=== PATIENT | male | born 1985 | race Caucasian/White ===

== ENCOUNTER 2019-11-03 21:30 | Emergency (ER) | payer BC, SELFPAY ==
[2019-11-03 21:30] VITALS: BP 140/90; PULSE 80; RESP 16; TEMP 36.7; O2SAT 98; BMI 27.6
--- NOTE | 2019-11-03 21:38 | XR_ITS ---
PROCEDURE: XR TIBIA FIBULA RT 2V CLINICAL INDICATION: trauma/ pain Posttraumatic pain COMPARISON: No exams were available for comparison FINDINGS: No fracture, dislocation, lytic change, or blastic change evident. No significant degenerative change IMPRESSION: No acute findings. Dictated by: Bubba Rider MD 11/04/2019 06:29 Electronically signed by Bubba Rider MD in [facility] 11/04/2019 06:29
--- NOTE | 2019-11-03 21:38 | XR_ITS ---
PROCEDURE: XR TIBIA FIBULA LT 2V CLINICAL INDICATION: trauma/ pain Pain following injury COMPARISON: No exams were available for comparison FINDINGS: No fracture, dislocation, lytic change, or blastic change evident. No significant degenerative change IMPRESSION: No acute findings. Dictated by: Bubba Rider MD 11/04/2019 06:30 Electronically signed by Bubba Rider MD in [facility] 11/04/2019 06:30
--- NOTE | 2019-11-03 21:38 | XR_ITS ---
PROCEDURE: XR PELVIS 1-2V CLINICAL INDICATION: trauma Pain following injury, trauma protocol COMPARISON: No exams were available for comparison TECHNIQUE: XR Pelvis AP View FINDINGS: No fracture or dislocation is evident. Minimal osteoarthritic changes of the hips. Contrast is present in the distal ureters and within the urinary bladder. No evidence of contrast extravasation. IMPRESSION: No acute findings. Dictated by: Bubba Rider MD 11/04/2019 06:33 Electronically signed by Bubba Rider MD in [facility] 11/04/2019 06:33
--- NOTE | 2019-11-03 21:38 | XR_ITS ---
PROCEDURE: XR HUMERUS LT CLINICAL INDICATION: pain Pain following injury COMPARISON: No exams were available for comparison FINDINGS: No fracture or dislocation. No lytic or blastic change. There is normal mineralization. The joint spaces are well-preserved. No significant degenerative/arthritic changes. No erosive changes evident. Other findings:None. IMPRESSION: No acute findings. Dictated by: Bubba Rider MD 11/04/2019 06:34 Electronically signed by Bubba Rider MD in [facility] 11/04/2019 06:34
--- NOTE | 2019-11-03 21:38 | CT_ITS ---
PROCEDURE: CT HEAD/BRAIN WO CON CLINICAL INDICATION: trauma Head injury with headache/pain, contusion, abrasion or hematoma COMPARISON: No exams were available for comparison TECHNIQUE: Axial images obtained. All CT scans at the facility use one or more dose reduction, viz: automated exposure control, ma/kV adjustment per patient size (including targeted exams where dose is matched to indication, i.e. head), or iterative reconstruction technique. FINDINGS: No midline shift, mass effect, intracranial hemorrhage, hydrocephalus, or extra-axial fluid collection is evident. The calvarium has an unremarkable appearance. No mastoid effusion. No sinus air-fluid level. IMPRESSION: No acute intracranial finding Dictated by: Bubba Rider MD 11/04/2019 07:09 Electronically signed by Bubba Rider MD in [facility] 11/04/2019 07:09
--- NOTE | 2019-11-03 21:38 | XR_ITS ---
PROCEDURE: XR SHOULDER LT MIN 2V CLINICAL INDICATION: pain Posttraumatic pain COMPARISON: No exams were available for comparison FINDINGS: No fracture, dislocation, lytic change, or blastic change evident. No significant degenerative change IMPRESSION: No acute findings. Dictated by: Bubba Rider MD 11/04/2019 06:31 Electronically signed by Bubba Rider MD in [facility] 11/04/2019 06:31
--- NOTE | 2019-11-03 21:38 | CT_ITS ---
PROCEDURE: CT CERVICAL SPINE WO CON CLINICAL INDICATION: trauma Neck injury with pain, contusion/abrasion or hematoma, cervical sprain/strain the COMPARISON: No exams were available for comparison TECHNIQUE: Axial images obtained with sagittal and coronal reformats. All CT scans at the facility use one or more dose reduction, viz: automated exposure control, ma/kV adjustment per patient size (including targeted exams where dose is matched to indication, i.e. head), or iterative reconstruction technique. Axial spiral CT scanning performed of the cervical spine beginning at the base of the skull and continuing to the upper T-spine. 3-D multiplanar reconstruction with 3-D manipulation of volumetric data set in image rendering was completed by the radiologist and/or technologist with the supervision of the radiologist on independent workstation. FINDINGS: Normal alignment. No fracture or dislocation. No lytic or blastic change. Small central disc protrusion versus prominent posterior longitudinal ligament at C2-C3, C3-C4, C4-C5. Mild degenerative disc disease at C5-C6. Lung apices are clear. Scattered small nodes are present in the neck IMPRESSION: No acute fracture. Degenerative changes with small central disc protrusion versus prominent posterior longitudinal ligament C2-C3, C3-C4, and C4-C5 Dictated by: Bubba Rider MD 11/04/2019 07:07 Electronically signed by Bubba Rider MD in [facility] 11/04/2019 07:07
--- NOTE | 2019-11-03 21:38 | CT_ITS ---
PROCEDURE: CT ABDOMEN PELVIS W CON CLINICAL INDICATION: trauma Posttraumatic pain, blunt trauma with injury and pain swelling and abrasion COMPARISON: No exams were available for comparison TECHNIQUE: IV Contrast: 75ML OPTIRAY 350 Oral Contrast none Axial images obtained with sagittal and coronal reformats. All CT scans at the facility use one or more dose reduction, viz: automated exposure control, ma/kV adjustment per patient size (including targeted exams where dose is matched to indication, i.e. head), or iterative reconstruction technique. FINDINGS: LOWER THORAX: No acute finding ABDOMEN & PELVIS: The liver, spleen, pancreas, adrenal glands, and kidneys show no acute finding. No intestinal obstruction or free air. No evidence of appendicitis or diverticulitis. No pelvic mass, abnormal fluid collection, or focal inflammatory change of the pelvis. No acute bony anomalies. There is a small umbilical hernia which contains fat. There are few sclerotic foci suggesting bone islands in the femoral heads IMPRESSION: No acute finding Dictated by: Bubba Rider MD 11/04/2019 07:16 Electronically signed by Bubba Rider MD in [facility] 11/04/2019 07:16
--- NOTE | 2019-11-03 21:38 | XR_ITS ---
PROCEDURE: XR CHEST AP CLINICAL HISTORY: trauma Posttraumatic pain, trauma protocol, trauma alert the COMPARISON: CXR CHEST(2 VIEWS-NOT PORTABLE) from 02/25/2014 FINDINGS: Mild cardiomegaly without failure. Calcified granuloma right upper lobe. The remaining lungs are clear. No acute bony abnormalities. IMPRESSION: No acute findings. Dictated by: Bubba Rider MD 11/04/2019 06:32 Electronically signed by Bubba Rider MD in [place] 11/04/2019 06:32
[2019-11-03 21:48] LABS: Basophils # 0.2 K/mm3 (0-0.2); Basophils % 1.9 % (0.1-2.0); Eosinophils # 0.2 K/mm3 (0.0-0.4); Eosinophils % 2.2 % (0.1-12.0); Hematocrit 44.8 % (42.0-52.0); Hemoglobin 15.6 g/dL (14.1-18.0); Lymphocytes # 4.5 K/mm3 (0.7-4.5); Lymphocytes % 44.9 % (10-50); Mean Corpuscular Hemoglobin 32.2 pg (27.0-31.2); Mean Platelet Volume 7.1 fl (7.4-10.4); Monocytes # 0.6 K/mm3 (0.1-1.0); Monocytes % 5.5 % (1.7-9.3); Neutrophils # 4.5 K/mm3 (1.8-7.8); Neutrophils % 45.5 % (37.0-80.0); Platelet Count 381 K/mm3 (142-424); Red Blood Count 4.86 M/mm3 (4.60-6.20); Red Cell Distribution Width 13.1 % (11.5-17.5); White Blood Count 9.9 K/mm3 (4.8-10.8)
[2019-11-03 21:53] LABS: Alanine Aminotransferase 26 U/L (12-78); Albumin Level 5.3 g/dl (3.5-5.0); Albumin/Globulin Ratio 1.6 (1.1-1.8); Alkaline Phosphatase 90 U/L (38-126); Anion Gap 16.2 mEq/L (5-15); Aspartate Amino Transferase 39 U/L (17-59); Bilirubin,Total 0.4 mg/dl (0.2-1.3); Blood Urea Nitrogen 15 mg/dl (9-20); Calcium 9.6 mg/dl (8.4-10.2); Carbon Dioxide 24 mmol/L (22.0-30.0); Chloride 102 mmol/L (98-107); Creatinine Clearance Estimated 131 mL/min (50-200); Estimated Glomerular Filt Rate 77 ml/min (>60); GFR (African American) 93 ML/MIN (>60); Globulin 3.3 g/dL (1.3-3.2); Glucose 96 mg/dl (74-100); Potassium 4.2 mmoL/L (3.5-5.1); Sodium 138 mmol/L (136-145); Total Protein,Serum 8.6 g/dl (6.3-8.2)
--- NOTE | 2019-11-03 22:21 | HMH.EDTRAUMA ---
ED Disposition Clinical Impression: Trauma Contusion of left chest wall Qualifiers: Encounter type: initial encounter Qualified Code(s): S20.212A - Contusion of left front wall of thorax, initial encounter Lower extremity injury Qualifiers: Encounter type: initial encounter Laterality: unspecified laterality Qualified Code(s): S89.90XA - Unspecified injury of unspecified lower leg, initial encounter Internal knee problem Qualifiers: Laterality: left Qualified Code(s): M23.92 - Unspecified internal derangement of left knee Disposition: Home, Self-Care Condition on Discharge: Good Instructions: DI for Trauma Additional Instructions: ice and wt bearing as vishnu and see pcp and ortho - use nsaif Referrals: Shirin Luis APRN [Primary Care Provider] - Ezio Robles MD [Staff Physician] - - Critical Care Critical Care Time: No Attestation: On 11/03/19, the high probability of a clinically significant, sudden or life threatening deterioration of the following system(s) required my full and direct attention, intervention and personal management. The time I documented below is in addition to time spent performing reported procedures but includes the following listed in this critical care notation. Medical Decision Making - Medical Records Medical records reviewed: Yes: I reviewed the patient's medical records. - Ricardo Inquiry Pt receiving controlled substance: No Vital Signs: 11/03/19 21:30 Temperature 98.1 F Temperature Source Oral Pulse Rate [Left Radial] 80 Respiratory Rate 16 Blood Pressure [Right Arm] 140/90 Blood Pressure Mean [Right Arm] 106 Blood Pressure Source [Right Arm] Automatic Cuff Blood Pressure Position [Right Arm] Sitting 02 Sat by Pulse Oximetry 98 Oxygen Delivery Method Room Air - Lab Data Lab results reviewed: Yes: I reviewed the patient's lab results. Lab Results 11/03/19 21:30: WBC 9.9, RBC 4.86, Hgb 15.6, Hct 44.8, MCV 92.0, MCH 32.2 H, MCHC 35.0, RDW 13.1, Plt Count 381, MPV 7.1 L, Neut % (Auto) 45.5, Lymph % (Auto) 44.9, [place] % (Auto) 5.5, Eos % (Auto) 2.2, Baso % (Auto) 1.9, Neut # (Auto) 4.5, Lymph # (Auto) 4.5, [place] # (Auto) 0.6, Eos # (Auto) 0.2, Baso # (Auto) 0.2 11/03/19 21:30: Sodium 138, Potassium 4.2, Chloride 102, Carbon Dioxide 24, Anion Gap 16.2 H, BUN 15, Creatinine 1.10, Estimated Creat Clear 131, Estimated GFR 77, Est GFR ( Amer) 93, Glucose 96, Calcium 9.6, Total Bilirubin 0.4, AST 39, ALT 26, Alkaline Phosphatase 90, Total Protein 8.6 H, Albumin 5.3 H, Globulin 3.3 H, Albumin/Globulin Ratio 1.6 11/03/19 21:30: Plasma/Serum Alcohol 157 H Result diagrams: 11/03/19 21:30 11/03/19 21:30 Orders (Tests/Meds): ED MEDICATIONS Discontinued Medications Generic Name Dose Route Start Last Admin Trade Name Freq PRN Reason Stop Dose Admin Ioversol 75 ml 11/03/19 23:21 11/03/19 23:21 Rad-Optiray 350 100ml Vial IV 11/03/19 23:22 75 ml ONCE ONE Administration Protocol Ketorolac Tromethamine 30 mg 11/03/19 21:40 11/03/19 21:45 Toradol 30mg/Ml Vial IV 11/03/19 21:41 30 mg ONCE ONE Administration Morphine Sulfate 4 mg 11/03/19 23:20 11/03/19 23:23 Morphine 4mg/Ml Syringe IV 11/03/19 23:21 4 mg ONCE ONE Administration Ondansetron HCl 4 mg 11/03/19 21:40 11/03/19 21:45 Zofran 4mg/2ml Vial IV 11/03/19 21:41 4 mg ONCE ONE Administration Sodium Chloride 10 ml 11/03/19 23:21 11/03/19 23:21 Rad-Saline Flush 10ml Syringe IV 11/03/19 23:22 10 ml ONCE ONE Administration ORDERS Category Date Time Status CT abdomen pelvis w con Stat Cat Scan 11/03/19 21:[address] cervical spine wo con Stat Cat Scan 11/03/19 21:[address] chest w con Stat Cat Scan 11/03/19 23:[address] head/brain wo con Stat Cat Scan 11/03/19 21:[address] knee LT wo con Stat Cat Scan 11/03/19 23:37 Ordered XR chest AP Stat Exams 11/03/19 21:38 Taken XR humerus LT Stat Exams 11/03/19 21:38 Taken XR pel
[2019-11-03 22:39] LABS: Ethyl Alcohol 157 mg/dl (0-10)
--- NOTE | 2019-11-03 23:37 | CT_ITS ---
PROCEDURE: CT KNEE LT WO CON CLINICAL HISTORY: pain post trauma Pain following injury, left knee pain swelling and abrasion post trauma COMPARISON: No exams were available for comparison TECHNIQUE: Axial images obtained with sagittal and coronal reformats. All CT scans at the facility use one or more dose reduction, viz: automated exposure control, ma/kV adjustment per patient size (including targeted exams where dose is matched to indication, i.e. head), or iterative reconstruction technique. FINDINGS: No fracture or dislocation. No lytic or blastic change. Small amount fluid noted within the knee joint. There is some increased density along the anterior cruciate ligament which may be better evaluated with MRI. There is some mild prepatellar and pretibial soft tissue swelling IMPRESSION: 1. No acute fracture. 2. Minimal irregularity of the soft tissues along the anterior cruciate ligament which may be better evaluated with MRI. Dictated by: Bubba Rider MD 11/04/2019 07:20 Electronically signed by Bubba Rider MD in [place] 11/04/2019 07:20
--- NOTE | 2019-11-03 23:37 | CT_ITS ---
PROCEDURE: CT CHEST W CON CLINCAL INDICATION: pain post trauma Chest pain following injury, blunt trauma with contusion/hematoma/abrasion COMPARISON: CT ABDOMEN PELVIS W CON from 11/03/2019 TECHNIQUE: IV Contrast: 75ml Optiray 350 Axial images obtained with sagittal and coronal reformats. All CT scans at the facility use one or more dose reduction, viz: automated exposure control, ma/kV adjustment per patient size (including targeted exams where dose is matched to indication, i.e. head), or iterative reconstruction technique. FINDINGS: There are small nodes in the axilla. No evidence of aortic aneurysm, dissection, or pulmonary embolus. There is some faint soft tissue density present in the anterior mediastinum which may be related to residual thymic tissue. Normal heart size. No evidence of pericardial effusion. There is evidence of old granulomatous disease. No evidence of pneumothorax. No acute bony findings. There is mild gynecomastia IMPRESSION: No acute finding. Dictated by: Bubba Rider MD 11/04/2019 07:14 Electronically signed by Bubba Rider MD in [place] 11/04/2019 07:14
[2019-11-04 01:13] VITALS: BP 138/78; PULSE 78; RESP 14; TEMP 36.7; O2SAT 98
[2019-11-07 15:48] LABS: POC Glucose,Bedside 110 (70-110)
== END 2019-11-04 01:15 | disposition home or self-care (01) ==
PROVIDERS: Emergency Provider Emergency Medicine; PCP Nurse Practitioner
DX: S20.212A Contusion of left front wall of thorax, initial encounter (principal); S89.90XA Unspecified injury of unspecified lower leg, initial encounter; M23.92 Unspecified internal derangement of left knee; V86.59XA Driver of other special all-terrain or other off-road motor vehicle injured in nontraffic accident, initial encounter; Y92.73 Farm field as the place of occurrence of the external cause; Z88.0 Allergy status to penicillin
CPT/HCPCS: 70450; 71045; 71260; 72125; 72170; 73030; 73060; 73590; 73700; 74177; 80053; 82962; 85025; 96374; 96375; 99281; J2405; Q9967

== ENCOUNTER 2021-01-25 12:37 | Emergency (ER) | payer BC, SELFPAY ==
[2021-01-25 13:15] VITALS: BP 125/85; PULSE 68; RESP 19; TEMP 36.9; O2SAT 96; BMI 27.6
[2021-01-25 13:51] VITALS: BP 125/85; PULSE 68; RESP 19; TEMP 36.9; O2SAT 96
--- NOTE | 2021-01-25 14:00 | HMH.EDUTC ---
[facility] [place] Impression: Strep [place] Disposition: Home, Self-Care Condition on Discharge: Good Instructions: DI for Strep Throat Additional Instructions: Start antibiotics today be sure to take it as ordered with the full length of time although you should start feeling better in 24-48 hours. Change toothbrush and toothpaste 24-48 hours after starting antibiotics Tylenol or Motrin as needed for fever or pain Encourage fluids, water, Gatorade, Powerade, try cold fluids, popsicles, ice cream will make it feel better You are contagious for 24 hours. Avoid kissing anyone, no eating or drinking after anyone. You are contagious. Follow-up the ER for new or worsening symptoms or no noticeable improvement over the next 24-48 hours. Follow-up with PCP this week. covid swab was sent to lab, call later today for results. self isolate until test results are known to be negative Prescriptions: Azithromycin [Zithromax 250mg tab] 250 mg PO DIRECTED #6 tab Transmission Status: Pending to [id number] Referrals: Claire Fairchild MD [Primary Care Provider] - Time of Disposition: 14:02 Medical Decision Making - Ricardo Inquiry Pt receiving controlled substance: No Vital Signs: 01/25/21 13:15 01/25/21 13:51 Temperature 98.4 F 98.4 F Temperature Source Oral Pulse Rate 68 Pulse Rate [Right Brachial] 68 Respiratory Rate 19 19 Blood Pressure 125/85 Blood Pressure [Right Arm] 125/85 Blood Pressure Mean [Right Arm] 98 Blood Pressure Source [Right Arm] Automatic Cuff Blood Pressure Position [Right Arm] Sitting 02 Sat by Pulse Oximetry 96 Oxygen Delivery Method Room Air Orders (Tests/Meds): ORDERS Category Date Time Status Covid-19 Nasal PCR ([facility]) Routine Lab 01/25/21 13:26 Re[place] [facility] [place] - General Chief complaint: [facility] Stated complaint: sore throat Time Seen by Provider: 01/25/21 14:00 Mode of Arrival: Ambulatory Source of Information: Patient Limitations: No Limitations Description of Symptoms (Recalled from Triage Doc. by RN): PATIENT C/O SORE THROAT, SINUS PRESSURE X 4 DAYS HEENT Symptoms (Recalled from RN notes): Yes Resp Symptoms (Recalled from RN notes): No Skin Symptoms (Recalled from RN notes): No MS Symptoms (Recalled from RN notes): No Functional Status (Recalled from RN notes): WNL - History of Present Illness Provider Complaint: 36 yr old male presents for sore throat and nasal congestion/ - Related Data Previous Rx's Medication Instructions Recorded Azithromycin [Zithromax 250mg 250 mg PO DIRECTED #6 tab 01/25/21 tab] Allergies Allergy/AdvReac Type Severity Reaction Status Date / Time Penicillins Allergy Verified 01/25/21 13:40 - Worker's Comp Is this a Worker's Comp case?: No H History - Hepatitis A Screen Drug use history?: No High risk sexual behaviors?: No History of sexually transmitted infection?: No Currently employed?: No Childcare worker?: No Do you have indoor plumbing?: Yes Do you have electricity?: Yes Attestation statement:: This patient has been screened for Hepatitis A risk factors. I have reviewed the patient's past medical history: Yes - Social History Smoking Status: Current every day smoker ROS Obtained: Yes Systems reviewed as appropriate & no additional complaints - Constitutional Constitutional: Reports system reviewed and no additional complaints, except as docu, Reports fatigue, Reports fever(s) - Eyes Eyes: Reports system reviewed and no additional complaints, except as docu, Denies blurry vision - ENT Ears, Nose, Mouth, and Throat: Reports system reviewed and no additional complaints, except as docu, Reports sore throat - Cardiovascular Cardiovascular: Reports system reviewed and no additional complaints, except as docu, Denies chest pain - Respiratory Respiratory: Reports system reviewed and no additional complaints, except as docu, Denies chest c
[2021-01-25 22:08] LABS: UTC Strep Screen (Rapid) Positive (Negative)
== END 2021-01-25 14:09 | disposition home or self-care (01) ==
PROVIDERS: Emergency Provider Nurse Practitioner Family; PCP Family Medicine
DX: J02.0 Streptococcal pharyngitis (principal); Z20.822 Contact with and (suspected) exposure to COVID-19; F17.210 Nicotine dependence, cigarettes, uncomplicated
CPT/HCPCS: 87880; 99203; G0463; U0003

== ENCOUNTER → 2021-08-12 10:43 | Outpatient (CLI) | payer BC, SELFPAY ==
--- NOTE | 2021-08-12 10:52 | XR_ITS ---
FINAL REPORT CLINICAL HISTORY: LOW BACK PAIN FINDINGS: 5 views of the lumbar spine were obtained. There is no evidence of fracture or dislocation. There is straightening of the normal lumbar curvature which could be due to positioning or muscle spasm. The vertebral alignment is normal. Disc spaces are preserved. No paraspinous soft tissue abnormalities identified. IMPRESSION: No acute bony abnormality. Straightening of the normal lumbar curvature, could be due to positioning or muscle spasm. Reviewed, Interpreted and Dictated by Paul Menendez III, MD Transcribed by Aixa Gonzalez Authenticated by Paul Menendez III, MD on 08/12/2021 11:35:15 AM [facility]
== END ==
PROVIDERS: PCP Family Medicine; Visit Provider Family Medicine
DX: M54.50 Low back pain, unspecified (principal)
CPT/HCPCS: 72110

== ENCOUNTER → 2021-08-24 13:05 | Outpatient (CLI) | payer BC, SELFPAY ==
--- NOTE | 2021-08-24 13:11 | XR_ITS ---
FINAL REPORT CLINICAL HISTORY: LT ANKLE PAIN/SWELLING FINDINGS: LEFT FOOT Three views of the left foot demonstrate no acute fracture or dislocation. The visualized joint spaces are normally aligned. There is soft tissue swelling over the dorsum of the foot. IMPRESSION: Soft tissue swelling without acute bony abnormality. Reviewed, Interpreted and Dictated by Emiliano Griffin MD Transcribed by Aixa Gonzalez Authenticated by Emiliano Griffin MD on 08/24/2021 04:28:03 PM [facility]
--- NOTE | 2021-08-24 13:11 | XR_ITS ---
FINAL REPORT CLINICAL HISTORY: LT ANKLE PAIN/SWELLING COMPARISON: November 03, 2019 FINDINGS: LEFT ANKLE Three views demonstrate no acute fracture or dislocation. The visualized joint spaces are normally aligned. There is prominent soft tissue swelling over the lateral malleolus. IMPRESSION: Prominent soft tissue swelling without acute bony abnormality. Reviewed, Interpreted and Dictated by Emiliano Griffin MD Transcribed by Aixa Gonzalez Authenticated by Emiliano Griffin MD on 08/24/2021 04:28:16 PM [facility]
== END ==
PROVIDERS: PCP Family Medicine; Visit Provider Family Medicine
DX: M25.572 Pain in left ankle and joints of left foot (principal); M25.472 Effusion, left ankle
CPT/HCPCS: 73610; 73630

== ENCOUNTER → 2022-03-15 11:52 | Outpatient (CLI) | payer OTHER, SELFPAY ==
--- NOTE | 2022-03-15 12:01 | XR_ITS ---
FINAL REPORT CLINICAL HISTORY: Left ankle pain @ lateral malleoli x wks, pt fell FINDINGS: LEFT ANKLE: Three views of the left ankle were obtained. There is a small calcification adjacent to lateral malleolus worrisome for an avulsion fracture of uncertain age. There is a small calcification medial to the distal fibula which could represent a small loose body. The joint spaces and mortise are intact. There is lateral soft tissue swelling. IMPRESSION: Small calcification adjacent to the lateral malleolus worrisome for an avulsion fracture of uncertain age with lateral soft tissue swelling. Calcification medial to the distal fibula could represent a small loose body. Reviewed, Interpreted and Dictated by Paul Menendez III, MD Transcribed by Maria De Jesus Escoto Authenticated and . [facility]
== END ==
PROVIDERS: PCP Family Medicine; Visit Provider Nurse Practitioner Family
DX: M25.572 Pain in left ankle and joints of left foot (principal)
CPT/HCPCS: 73610

== ENCOUNTER → 2022-04-10 09:16 | Outpatient (CLI) | payer OTHER, SELFPAY ==
--- NOTE | 2022-04-10 09:22 | MR_ITS ---
FINAL REPORT CLINICAL HISTORY: ACUTE LEFT ANKLE PAIN PT STATES ORIGINAL INURY IN AUGUST. SINCE THEN HAS REINJURED. LATERAL ANKLE PAIN. FINDINGS: Multiplanar MR imaging of the left ankle was performed without contrast. The bony structures are intact without evidence of fracture, bone bruise or marrow edema. There is a tiny, osteochondral lesion at the posterior lateral talar dome seen on axial imaging series 4, image 15 measuring 4 mm. The ligaments are intact without evidence of injury. The flexor and extensor tendons are intact. The posterior plantar aponeurosis is intact. No significant joint effusion is seen. The musculature is intact. There is no evidence of soft tissue mass or cyst. IMPRESSION: 4 mm osteochondral lesion at the posterior lateral talar dome. Reviewed, Interpreted and Dictated by Emiliano Griffin MD Transcribed by Veronica Anguiano Authenticated and [facility]
== END ==
PROVIDERS: PCP Family Medicine; Visit Provider Family Medicine
DX: M25.572 Pain in left ankle and joints of left foot (principal)
CPT/HCPCS: 73721

== ENCOUNTER 2024-10-13 17:38 | Emergency (ER) | payer BC, SELFPAY ==
[2024-10-13] VITALS (9 sets, daily range): BP systolic 117–144; BP diastolic 72–89; PULSE 80–91; RESP 14–18; TEMP 36.6–36.7; O2SAT 96–99; BMI 25.0
--- NOTE | 2024-10-13 17:42 | PC.NURSE ---
TRAUMA ALERT CALLED
--- NOTE | 2024-10-13 17:48 | CT_ITS ---
PROCEDURE INFORMATION: Exam: CT Lumbar Spine Without Contrast Exam date and time: 10/13/2024 6:07 PM Age: 39 years old Clinical indication: Injury or trauma; Additional info: Trauma, critical injury suspected TECHNIQUE: Imaging protocol: Computed tomography of the lumbar spine without contrast. Radiation optimization: All CT scans at this facility use at least one of these dose optimization techniques: automated exposure control; mA and/or kV adjustment per patient size (includes targeted exams where dose is matched to clinical indication); or iterative reconstruction. COMPARISON: CT THORACIC SPINE WO CON 10/13/2024 6:04 PM FINDINGS: Bones/joints: No acute fracture. Normal alignment. No significant disc bulge or herniation. No severe spinal canal stenosis. No significant neural foraminal narrowing. Soft tissues: Unremarkable. IMPRESSION: No acute findings.
--- NOTE | 2024-10-13 17:48 | CT_ITS ---
PROCEDURE INFORMATION: Exam: CTA Neck With Contrast Exam date and time: 10/13/2024 6:10 PM Age: 39 years old Clinical indication: Injury or trauma; Additional info: Trauma, critical injury suspected TECHNIQUE: Imaging protocol: Computed tomographic angiography of the neck with contrast. Exam focused on the cervical segments of the vasculature. 3D rendering (Not supervised by radiologist): MIP and/or 3D reconstructed images were created by the technologist. Radiation optimization: All CT scans at this facility use at least one of these dose optimization techniques: automated exposure control; mA and/or kV adjustment per patient size (includes targeted exams where dose is matched to clinical indication); or iterative reconstruction. Contrast material: ISOUVE 370; Contrast volume: 160 ml; Contrast route: INTRAVENOUS (IV); COMPARISON: CT CERVICAL SPINE WO CON 10/13/2024 6:02 PM FINDINGS: Limitations: Limited by artifact arising from metallic dental hardware/dental amalgam. Right common carotid artery: No stenosis. No dissection or occlusion. Right internal carotid artery: No stenosis of the extracranial segment. No dissection or occlusion. Right external carotid artery: No occlusion or stenosis of the origin. Left common carotid artery: No stenosis. No dissection or occlusion. Left internal carotid artery: No stenosis of the extracranial segment. No dissection or occlusion. Left external carotid artery: No occlusion or stenosis of the origin. Right vertebral artery: No stenosis. No dissection or occlusion. Left vertebral artery: No stenosis. No dissection or occlusion. Soft tissues: Normal. No significant soft tissue swelling. Bones/joints: No acute fracture. IMPRESSION: No acute vascular pathology. REFERENCES: NASCET CRITERIA. The degree of stenosis in the cervical segment of the internal carotid artery is based on NASCET criteria. Normal is no stenosis. Mild is less than 50% stenosis. Moderate is 50-69% stenosis. Severe is 70% to 99% stenosis. Total occlusion is no detectable patent lumen.
--- NOTE | 2024-10-13 17:48 | CT_ITS ---
PROCEDURE INFORMATION: Exam: CT Thoracic Spine Without Contrast Exam date and time: 10/13/2024 6:04 PM Age: 39 years old Clinical indication: Injury or trauma; Additional info: Trauma, critical injury suspected TECHNIQUE: Imaging protocol: Computed tomography of the thoracic spine without contrast. Radiation optimization: All CT scans at this facility use at least one of these dose optimization techniques: automated exposure control; mA and/or kV adjustment per patient size (includes targeted exams where dose is matched to clinical indication); or iterative reconstruction. COMPARISON: CT CERVICAL SPINE WO CON 10/13/2024 6:02 PM FINDINGS: Bones/joints: No acute fracture. Normal alignment. No significant disc bulge or herniation. No severe spinal canal stenosis. No significant neural foraminal narrowing. Soft tissues: Unremarkable. IMPRESSION: Unremarkable CT Spine.
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
--- NOTE | 2024-10-13 17:49 | XR_ITS ---
FINAL REPORT CLINICAL HISTORY: pain FINDINGS: LEFT TIBIA AND FIBULA There is no acute fracture or dislocation. The joint spaces are intact. There is no soft tissue abnormality. IMPRESSION: No acute fracture Reviewed, Interpreted and Dictated by Emiliano Griffin MD Transcribed by Veronica Anguiano Authenticated and [facility]
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
--- NOTE | 2024-10-13 18:00 | ECG_ITS ---
APPROVED REPORT Exam: Resting ECG HR:83 bpm ECG Measurements Heart Rate 83 AXES ID 162 P 76 QRSd 87 QRS 71 QT 358 T 39 QTc 398 Conclusion Sinus rhythm Nonspecific ST and T wave changes Electronically signed by : MENA CHEN, 10/14/2024 20:26:51
[2024-10-13 18:06] LABS: Basophils # 0.1 K/mm3 (0-0.2); Eosinophils # 0.2 Kmm3 (0.0-0.4); Eosinophils % 2.4 % (0.1-12.0); Hematocrit 37.4 % (42.0-52.0); Hemoglobin 12.8 g/dL (14.1-18.0); Immature Granulocytes # 0.01 10^3uL; Immature Granulocytes % 0.1 %; Lymphocytes # 2.9 K/mm3 (0.7-4.5); Lymphocytes % 33.2 % (10-50); Mean Corpuscular HGB Conc 34.2 g/dL (31.8-35.4); Mean Corpuscular Hemoglobin 31.5 pg (27.0-31.2); Mean Corpuscular Volume 92.1 fl (80-94); Mean Platelet Volume 9.1 fl (7.4-10.4); Monocytes # 0.8 K/mm3 (0.1-1.0); Monocytes % 8.9 % (1.7-9.3); Neutrophils # 4.7 K/mm3 (1.8-7.8); Neutrophils % 54.4 % (37.0-80.0); Nucleated Red Blood Cells # 0 10^3/uL; Nucleated Red Blood Cells % 0 %; Platelet Count 312 K/mm3 (142-424); Red Blood Count 4.06 M/mm3 (4.60-6.20); Red Cell Distribution Width 12.2 % (11.5-17.5); Red Cell Distribution Width-SD 41.3 fL; White Blood Count 8.6 K/mm3 (4.8-10.8)
[2024-10-13 18:09] LABS: Albumin Level 4.5 g/dl (3.5-5.0)
[2024-10-13 18:10] LABS: Chloride 106 mmol/L (98-107); Potassium 3.8 mmoL/L (3.5-5.1); Sodium 137 mmol/L (136-145)
[2024-10-13] MEDS: 0.9 % SODIUM CHLORIDE 50 ML VIAL IV (18:10)
[2024-10-13] MEDS: IOPAMIDOL-370 (76%);100ML BOTTLE 160 ML IV (18:10)
[2024-10-13] MEDS: SODIUM CHLORIDE 0.9% 10ML SYR (RAD ONLY) 10 ML IV (18:10)
[2024-10-13 18:12] LABS: Alanine Aminotransferase 51 U/L (12-78); Alkaline Phosphatase 71 U/L (38-126); Anion Gap 8.8 mEq/L (5-15); Aspartate Amino Transferase 44 U/L (17-59); Bilirubin,Total 0.5 mg/dl (0.2-1.3); Blood Urea Nitrogen 15 mg/dl (9-20); Carbon Dioxide 26 mmol/L (22.0-30.0); Estimated Glomerular Filt Rate 94 ml/min (>60); GFR (African American) 114 ML/MIN (>60); Globulin 2.3 g/dL (1.3-3.2); INR 0.88 (0.9-1.1); Total Protein,Serum 6.8 g/dl (6.3-8.2)
[2024-10-13 18:13] LABS: Calcium 8.8 mg/dl (8.4-10.2); Glucose 89 mg/dl (74-100); Lipase 212 U/L (23-300); Magnesium 1.7 mg/dl (1.6-2.3)
[2024-10-13 18:24] LABS: Troponin I < 0.01 ng/ml (0.00-0.034)
[2024-10-13] MEDS: ONDANSETRON 4MG/2ML VIAL 4 MG IV (19:02)
[2024-10-13] MEDS: MORPHINE 4MG/ML SYRINGE 4 MG IV (19:02)
== END 2024-10-13 20:49 | disposition home or self-care (01) ==
PROVIDERS: Nurse Practitioner; Emergency Provider Emergency Medicine; PCP Family Medicine
DX: S81.012A Laceration without foreign body, left knee, initial encounter (principal); M79.642 Pain in left hand; V86.56XA Driver of dirt bike or motor/cross bike injured in nontraffic accident, initial encounter
CPT/HCPCS: 12002; 70450; 70496; 70498; 71275; 72125; 72128; 72131; 73110; 73551; 73562; 73590; 73610; 74174; 80053; 83690; 83735; 84484; 85025; 85610; 93005; 96374; 96375; 99285; J2270; J2405; Q9967

== ENCOUNTER 2024-12-24 16:00 | Outpatient (CLI) | payer BC, SELFPAY ==
--- OUTSIDE RECORDS SUMMARY | 2024-12-24 16:02 | XMS_ITS | Clinical Summary ---
Author Organization Healthcare Address [address] [place] [address] Care Team Providers Care Budget Specialist Name Role Phone Delores Jacob APRN Primary Care Provider [phone] Allergies Active Allergy Reactions Criticality Noted Date Comments Penicillins Unknown - Patient st ates they do not know rxn details Low 08/23/2021 Medications No known medications Active Problems No known active problems Social History Tobacco Use Types Packs/Day Years Used Date Smoking Tobacco: Some Days Alcohol Use Standard Drinks/Week Comments Yes 0 (1 standard drink = 0.6 oz pur e alcohol) Sex and Gender Information Value Date Recorded Sex Assigned at Not on file Legal Sex Male 7:51 PM EDT Gender Identity Not on file Sexual Orientation Not on file Last Filed Vital Signs Vital Sign Reading Time Taken Comments Blood Pressure 137/81 08/23/2021 6:46 AM EDT Pulse 91 08/23/2021 6:46 AM EDT Temperature 36.7 C (98.1 F) 08/23/2021 5:08 AM EDT Respiratory Rate 19 08/23/2021 6:46 AM EDT Oxygen Saturation 98% 08/23/2021 6:46 AM EDT Inhaled Oxygen Concentration - - Weight 102 kg (224 lb 13.9 oz) 08/23/2021 5:08 A M EDT Height 188 cm (6' 2.02 ) 08/23/2021 5:08 AM EDT Body Mass Index 28.86 08/23/2021 5:08 AM EDT Plan of Treatment Health Maintenance Due Date Last Done Comments [facility]-Depression Screening 1985 [facility]-Infant/Child/Adol SDOH Screenings 1985 [facility]-Varicella Vaccines (1 of 2 - 13+ 2-dose series) 1998 HPV Vaccines (1 - Male 3-dose series) 01/19/2000 [facility]- SDOH Screenings 2003 [facility]-Adult SDOH Screenings 2003 [facility]-DTaP,Tdap,and Td Vaccines (1 - Tdap) 01/19/2004 [facility]-Hepatitis B Vaccines (1 of 3 - 19+ 3-dose series) 01/19/2004 [id number] Vaccine (3 - 2023- season) 2024 02/13/2021, 01/14/2021 [facility]-Influenza Vaccine (#1) 2025 [facility]-Zoster Vaccines (1 of 2) 2035 [facility]-HIB Vaccines Aged Out No longer e ligible based on patient's age to complete this topic [facility]-Hepatitis A Vaccines Aged Out No longer eligible based on patient's age to complete this topic [facility]-IPV Vaccines Aged Out No longer e ligible based on patient's age to complete this topic [facility]-Pneumococcal Vaccine: Pediatrics (0 to 5 Years) and At-Risk Patients (6 to 49 Years) Aged Out No longer eligible b ased on patient's age to complete this topic [facility]-Rotavirus Vaccines Aged Out No lo nger eligible based on patient's age to complete this topic Insurance [place] [id number] [address] Care Teams Budget Specialist Relationship Specialty Start Date End Date Delores Jacob APRN [address] [place] [id number] PCP - General 10/17/20
[2024-12-24 16:32] LABS: Hematocrit 43.3 % (42.0-52.0); Hemoglobin 14.4 g/dL (14.1-18.0); Immature Granulocytes % 0.5 %; Mean Corpuscular HGB Conc 33.3 g/dL (31.8-35.4); Mean Corpuscular Hemoglobin 30.8 pg (27.0-31.2); Mean Corpuscular Volume 92.7 fl (80-94); Nucleated Red Blood Cells % 0 %; Platelet Count 317 K/mm3 (142-424); Red Blood Count 4.67 M/mm3 (4.60-6.20); Red Cell Distribution Width-SD 39.4 fL; White Blood Count 9.2 K/mm3 (4.8-10.8)
[2024-12-24 17:23] LABS: Albumin Level 5.0 g/dl (3.5-5.0); Chloride 96 mmol/L (98-107); Sodium 135 mmol/L (136-145)
[2024-12-24 17:24] LABS: Potassium 4.1 mmoL/L (3.5-5.1)
[2024-12-24 17:26] LABS: Alanine Aminotransferase 57 U/L (12-78); Alkaline Phosphatase 73 U/L (38-126); Anion Gap 12.1 mEq/L (5-15); Aspartate Amino Transferase 52 U/L (17-59); Bilirubin,Direct 0.4 mg/dl (0.0-0.4); Bilirubin,Indirect 0.5 mg/dL (0.0-0.9); Bilirubin,Total 0.9 mg/dl (0.2-1.3); Bilirubin,Unconjugated 0.5 mg/dL (0.0-1.1); Blood Urea Nitrogen 11 mg/dl (9-20); Carbon Dioxide 31 mmol/L (22.0-30.0); Cholesterol 176 mg/dl (140-200); Creatinine,Serum 0.70 mg/dl (0.66-1.25); Estimated Glomerular Filt Rate 126 ml/min (>60); GFR (African American) 152 ML/MIN (>60); Total Protein,Serum 7.5 g/dl (6.3-8.2); Triglycerides 138 mg/dl (30-150)
[2024-12-24 17:27] LABS: Calcium 9.6 mg/dl (8.4-10.2); Glucose 90 mg/dl (74-100); HDL Cholesterol 79 mg/dl (40-60)
[2024-12-24 17:44] LABS: Free Thyroxine Index 2.3 ug/dL (5.93-13.13); T4 (Thyroxine) 6.9 ug/dl (5.53-11.0); Triiodothryronine (T3) Uptake 33 % (23.5-40.5)
[2024-12-24 17:58] LABS: Thyroid Stimulating Hormone 3.52 uIU/mL (0.465-4.68)
== END 2024-12-24 23:59 | disposition home or self-care (01) ==
LOC: LAB 16:00
PROVIDERS: PCP Family Medicine; Visit Provider Nurse Practitioner
DX: E78.5 Hyperlipidemia, unspecified (principal); I10 Essential (primary) hypertension; R53.83 Other fatigue
CPT/HCPCS: 36415; 80048; 80061; 80076; 84436; 84443; 84479; 85025